=== PATIENT | male | born 1940 | race Caucasian/White ===

== ENCOUNTER 2019-05-01 19:30 | Outpatient (CLI) | payer MEDICARE | END 2019-05-01 19:31 | disposition home or self-care (01) | LOC: SLEEPLAB 19:30 | PROVIDERS: ATTEND Family Medicine | DX: G47.33 Obstructive sleep apnea (adult) (pediatric) (principal); R53.83 Other fatigue; R09.89 Other specified symptoms and signs involving the circulatory and respiratory systems; R06.83 Snoring; E29.1 Testicular hypofunction; G47.00 Insomnia, unspecified; G47.61 Periodic limb movement disorder | CPT/HCPCS: 95810 ==